=== PATIENT | female | born 1985 | race Two or more races ===

== ENCOUNTER 2016-09-20 19:15 | Emergency (ER) | payer BC ==
--- NOTE | 2016-09-20 19:22 | PDOC ---
History of Present Illness <Raoul Polo - Last Filed: 09/20/16 19:37> - History of Present Illness Initial Comments: 09/20/16 19:22 The patient is a 31 year old female with a past medical hx of ectopic , nephrolithiasis, cystic breast, migraines who presents to the ED complaining of left and right ear pain for a few days. The patient reports she went to an ENT yesterday and had her left ear cleaned out with a vacuum. She states she was prescribed nasal spray that she has not yet used. The patient notes she woke up today and both of her ears felt like they were swollen and she cannot hear out of her left ear. She reports she feels congested but denies any other symptoms at this time. The patient denies fever, chills, dizziness <Vi Beckford - Last Filed: 09/20/16 19:38> - General Chief Complaint: Ear Problem Stated Complaint: [place] EAR PAIN Time Seen by Provider: 09/20/16 19:18 Past History - Past Medical History Kidney Stones: Yes - Psycho/Social/Smoking Cessation Hx Anxiety: No Suicidal Ideation: No Smoking History: Never smoked Hx Alcohol Use: No Drug/Substance Use Hx: No <Raoul Polo - Last Filed: 09/20/16 19:37> <Vi Beckford - Last Filed: 09/20/16 19:38> - Past Medical History Allergies/Adverse Reactions: Allergies Allergy/AdvReac Type Severity Reaction Status Date / Time No Known Allergies Allergy Verified 09/20/16 19:16 Home Medications: Ambulatory Orders Ibuprofen [Motrin -] 400 mg PO ASDIR 01/22/16 Review of Systems - Review of Systems Able to Perform ROS?: Yes Comments:: 09/20/16 19:24 GENERAL/CONSTITUTIONAL: No: fever, chills HEAD, EYES, EARS, NOSE AND THROAT: +Bilateral ear pain, hearing loss left ear <Vi Beckford - Last Filed: 09/20/16 19:38> *Physical Exam - Vital Signs Last Vital Signs Temp Pulse Resp BP Pulse Ox 98.3 F 75 18 117/70 99 09/20/16 19:15 09/20/16 19:15 09/20/16 19:15 09/20/16 19:15 09/20/16 19:15 - Physical Exam General Appearance: Yes: Nourished, Appropriately Dressed. No: Apparent Distress HEENT: positive: Normal ENT Inspection, Nasal Congestion Neck: positive: Supple. negative: Tender Respiratory/Chest: positive: Lungs Clear, Normal Breath Sounds. negative: Chest Tender, Respiratory Distress Cardiovascular: positive: Regular Rhythm, Regular Rate Gastrointestinal/Abdominal: positive: Soft. negative: Tender Musculoskeletal: positive: Normal Inspection Extremity: positive: Normal Capillary Refill Integumentary: positive: Normal Color Neurologic: positive: Fully Oriented, Alert, Normal Mood/Affect, Normal Response , Motor Strength 5/5 <Raoul Polo - Last Filed: 09/20/16 19:37> - Vital Signs Last Vital Signs Temp Pulse Resp BP Pulse Ox 98.3 F 75 18 117/70 99 09/20/16 19:15 09/20/16 19:15 09/20/16 19:15 09/20/16 19:15 09/20/16 19:15 <Vi Beckford - Last Filed: 09/20/16 19:38> *DC/Admit/Observation/Transfer <Raoul Polo - Last Filed: 09/20/16 19:37> - Attestations Scribe Attestion: 09/20/16 19:22 Documentation prepared by Vi Beckford, acting as medical specialist for Raoul Polo MD/DO. <Vi Beckford - Last Filed: 09/20/16 19:38> Diagnosis at time of Disposition: Nasal congestion - Discharge Dispostion Disposition: HOME Condition at time of disposition: Stable - Patient Instructions Additional Instructions: PLENTY OF FLUIDS (WATER/GATORADE) USE SPRAY PRESCRIBED BY YOUR DOCTOR RETURN IF FEVER OR NEW SYMPTOMS
[2016-09-20 19:27] VITALS: BP 117/70; PULSE 75; TEMP 98.3; BMI 22.8
== END 2016-09-20 19:37 | disposition home or self-care (01) ==
LOC: FER 19:15
DX: R09.81 Nasal congestion (principal)
CPT/HCPCS: 99282-25

== ENCOUNTER 2016-12-24 21:28 | Emergency (ER) | payer BC ==
[2016-12-24 21:47] VITALS: BP 126/81; PULSE 90; TEMP 98.5; BMI 23.1
--- NOTE | 2016-12-24 22:21 | PDOC ---
History of Present Illness - General Chief Complaint: Oral Ulcers Stated Complaint: MOUTH PROBLEM Time Seen by Provider: 12/24/16 22:02 History Source: Patient Exam Limitations: No Limitations - History of Present Illness Initial Comments: 12/24/16 22:22 This is a 31-year-old female who comes in complaining of a sore in her mouth. 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 Patient denies any fevers or chills. Patient denies any trauma. PAST MEDICAL HISTORY: no significant history PAST SURGICAL HISTORY: no significant history FAMILY HISTORY: no pertinant history SOCIAL HISTORY: Pt lives with family and is employed. MEDICATIONS: reviewed ALLERGIES: As per nursing notes Review of Systems General: No fevers or chills, no weakness, no weight loss HEENT: No change in vision. No sore throat,. No ear pain, sore in mouth CardioVascular: No chest pain or shortness of breath Respiratory:No cough, or wheezing. Gastrointestinal: no nausea, vomitting, diarrhea or constipation, No rectal bleeding Genitourinary: No dysuria, hematuria, or frequency Musculoskeletal: No joint or muscle pain or swelling Neurologic: No headache, vertigo, dizziness or loss of consciousness Psychiatric: nor depression Skin: No rashes or easy bruising Endocrine: no increased thirst or abnormal weight change Allergic: no skin or latex allergy All other systems reviewed and normal GENERAL: The patient is awake, alert, and fully oriented, in no acute distress. HEAD: Normal with no signs of trauma. Mouth: There is a small aphthous ulcer on the inside of patient's lip. There is also a small mucoid cyst. EYES: Pupils equal, round and reactive to light, extraocular movements intact, sclera anicteric, conjunctiva clear. EXTREMITIES: Normal range of motion, no edema. NEUROLOGICAL: Normal speech, normal gait. PSYCH: Normal mood, normal affect. SKIN: Warm, Dry, normal turgor, no rashes or lesions noted. Assessment and plan: This is a 31-year-old female who comes in complaining of a sore in her mouth. On exam patient has a small canker sore. Patient was reassured that is not anything to be concerned about it will resolve on its own and patient was discharged. Past History - Past Medical History Allergies/Adverse Reactions: Allergies Allergy/AdvReac Type Severity Reaction Status Date / Time No Known Allergies Allergy Verified 09/20/16 19:16 Home Medications: Ambulatory Orders NK [No Known Home Medication] 12/24/16 Kidney Stones: Yes - Psycho/Social/Smoking Cessation Hx Anxiety: No Suicidal Ideation: No Smoking History: Never smoked Hx Alcohol Use: No Drug/Substance Use Hx: No *Physical Exam - Vital Signs Last Vital Signs Temp Pulse Resp BP Pulse Ox 98.5 F 90 16 126/81 98 12/24/16 21:34 12/24/16 21:34 12/24/16 21:34 12/24/16 21:34 12/24/16 21:34 *DC/Admit/Observation/Transfer Diagnosis at time of Disposition: Aphthous ulcer of mouth - Discharge Dispostion Disposition: HOME Condition at time of disposition: Stable Admit: No - Referrals Referrals: Mario Strauss [Primary Care Provider] - - Patient Instructions Printed Discharge Instructions: DI for Aphthous Ulcers (Canker Sores), Canker Sores (Alternative Therapy) Additional Instructions: Return to the emergency department immediately with ANY new, persistent or worsening symptoms. Continue any medications as previously prescribed by your physician. You should follow up with your primary doctor as soon as possible regarding today's emergency department visit. . Please make sure your doctor reviews the results of your emergency evaluation. Thank you for coming to the Emergency Department today for your care. It was a pleasure to see you today. Please note that your evaluation is INCOMPLETE until you follow-up with your doctor.
== END 2016-12-24 22:23 | disposition home or self-care (01) ==
LOC: FER 21:28
DX: K12.0 Recurrent oral aphthae (principal)
CPT/HCPCS: 99281-25

== ENCOUNTER 2019-07-27 11:11 | Emergency (ER) | payer BC, OTHER ==
[2019-07-27 11:19] VITALS: BMI 22.5
[2019-07-27 12:09] LABS: BASO % 0.6 % (0-2.0); EOS % 0.4 % (0-4.5); HEMATOCRIT 44.5 % (32.4-45.2); HEMOGLOBIN 14.9 GM/dL (10.7-15.3); LYMPH % 18.2 % (8-40); MCH 31.1 pg (25.7-33.7); MCHC 33.4 g/dl (32.0-36.0); MEAN CELL VOLUME 93.1 fl (80-96); MEAN PLT VOLUME 8.1 fl (7.5-11.1); MONO % 6.8 % (3.8-10.2); PLATELET COUNT 207 K/MM3 (134-434); RBC 4.78 M/mm3 (3.60-5.2); RDW 12.4 % (11.6-15.6); WHITE BLOOD COUNT 6.2 K/mm3 (4.0-10.0)
--- NOTE | 2019-07-27 12:13 | PDOC ---
History of Present Illness - General Chief Complaint: Pain, Acute Stated Complaint: R/I KIDNEY STONE History Source: Patient Exam Limitations: No Limitations - History of Present Illness Initial Comments: 07/27/19 12:10 PCP: Dr. Kory Knox Renal: Dr. Taylor Mccarthy HPI: 34yo F with history of nephrolithiasis presenting with R flank pain. Nausea while heading to the ED, resolved while laying down. No vomiting. Denies any fevers or chills. History of multiple presentations for stones, none obstructing, multiple renal calculi, first at age 18, father also with stones. Patient noticed dark urine today, denies any dysuria, pain, burning frequency, abdominal pain. Endorses urinary urgency which is consistent with her prior stone symptoms. One prior complicated stone, admitted at [facility] with +BCx for urosepsis. Normal BMs, no constipation / diarrhea. Denies CP, SOB, lightheadedness, cough. NKDA Meds: Denies PMH: Renal colic, stones PSH: B/l tubal removals for ectopic pregnancies SHx: Smoking and ETOH on the weekends, denies illicits Past History - Travel Traveled outside of the country in the last 30 days: No Close contact w/someone who was outside of country & ill: No - Past Medical History Allergies/Adverse Reactions: Allergies Allergy/AdvReac Type Severity Reaction Status Date / Time No Known Allergies Allergy Verified 07/27/19 11:19 Home Medications: Ambulatory Orders Ibuprofen [Motrin -] 800 mg PO PRN PRN 02/12/18 Ondansetron [Zofran Odt -] 4 mg SL TID PRN #10 od.tablet 02/13/18 Tamsulosin HCl [Flomax] 0.4 mg PO DAILY #10 capsule 02/13/18 Tamsulosin HCl [Flomax] 0.4 mg PO DAILY #30 cap.er.24h 07/27/19 COPD: No Kidney Stones: Yes - Reproductive History Ectopic : Yes (X2) - Psycho Social/Smoking Cessation Hx Smoking History: Never smoked Have you smoked in the past 12 months: No Hx Alcohol Use: No Drug/Substance Use Hx: No Substance Use Type: None Review of Systems - Review of Systems Able to Perform ROS?: Yes Is the patient limited Gabonese proficient: Yes Constitutional: No: Chills, Fever, Weakness, Weight Stable HEENTM: No: Blurred Vision, Recent change in vision, Nose Congestion, Throat Swelling, Mouth Pain Respiratory: No: Cough, Shortness of Breath, Wheezing Cardiac (ROS): No: Chest Pain, Irregular Heart Rate, Chest Tightness ABD/GI: Yes: Nausea (shortly before arrival, resolved). No: Constipated, Diarrhea, Poor Appetite, Poor Fluid Intake, Rectal Bleeding, Vomiting : Yes: Flank Pain, Hematuria, Urgency. No: Burning, Dysuria, Discharge, Frequency, Incontinence, Pain Musculoskeletal: No: Back Pain, Muscle Pain, Muscle Weakness Integumentary: No: Bruising, Pruritus, Rash Neurological: No: Headache, Numbness, Tingling, Weakness Psychiatric: No: Stressors, Emotional Problems Endocrine: No: Increased Thirst, Increased Urine, Change in Weight Hematologic/Lymphatic: No: Anemia, Blood Clots, Easy Bleeding All Other Systems: Reviewed and Negative *Physical Exam - Vital Signs Last Vital Signs Temp Pulse Resp BP Pulse Ox 98 F 86 18 116/65 100 07/27/19 11:17 07/27/19 11:17 07/27/19 11:17 07/27/19 11:17 07/27/19 11:17 - Physical Exam 07/27/19 13:34 Vitals reviewed, AFVSS GEN: Well appearing, NAD, slightly uncomfortable, laying on left side holding right flank, A&Ox3 HEENT: NC/AT, EOMI, PERRLA. No facial asymmetry. Moist mucous membranes. Normal voice. Supple neck w/ FROM. CV: S1/S2, RRR, no m/r/g LUNG: CTAB, no wheezes, crackles, rales, rhonchi. GI: soft, ndnt, +BS, no guarding, no rebound. No masses. Neg CVAT b/l. EXTREMITIES: 2+ distal pulses. No LE edema. No obvious deformities of all extremities. SKIN: Warm, dry, normal turgor PSYCH: Normal mood and affect NEURO: Moving all extremities well ED Treatment Course - LABORATORY CBC & Chemistry Diagram: 07/27/19 11:52 07/27/19 11:52 Medical Decision Making - Medical Decision Making 07/27/19 13:33 34yo F with history of nephrolithiasis presenting with R flank pain c/w ureterolithiasis, UTI vs pyleo less likely but also on the DDX, intra-abdominal pathology less likely given exam, plan for basic labs and urine studies. - CBC, CMP, UA - Toradol 15mg IV - IVF 1L - Hepical CT 07/27/19 13:44 - Patient with symptomatic relief s/p toradol - Agrees with plan for spiral CT and likely discharge 07/27/19 16:02 - Pain returning, additional dose of Toradol 15 given - CT with 5mm proximal obstructing stone - Rx for Flomax - F/u with Renal vs PCP within 1 week - Motrin / Tylenol as needed for pain - Return precautions discussed Dispo: home Discharge - Discharge Information Problems reviewed: Yes Clinical Impression/Diagnosis: Renal colic on right side Condition: Improved Disposition: HOME - Admission No - Additional Discharge Information Prescriptions: Tamsulosin HCl [Flomax] 0.4 mg PO DAILY #30 cap.er.24h - Follow up/Referral Referrals: Kory Knox [Primary Care Provider] - - Patient Discharge Instructions Patient Printed Discharge Instructions: Kidney Stones -- Adult Additional Instructions: You were seen and evaluated for R sided flank pain and were found to be passing a kidney stone. Please continue to take over the counter pain medication as needed for your pain. Take 650mg Tylenol, then after 3 hours take 600mg of Motrin then after 3 hours start over with Tylenol. This provides the best pain coverage. Also continue to drink lots of water as this can help pass the stone and prevent further stones. A prescription for Flomax has been sent to your pharmacy, please pick this up and use it as directed until you are able to follow up with your PCP or Renal provider or your symptoms resolve. Follow up with your kidney doctor or PCP in the next 2-3 days if your pain does not resolve. Return to the ED if you develop any new or concerning symptoms. These may include but are not limited to: fevers / chills, nausea with vomiting that prevent you from drinking water or taking medication, or pain with urination. Thank you for coming in. I hope you feel well soon. - Post Discharge Activity
[2019-07-27] MEDS ORDERED: SODIUM CHLORIDE 0.9% 500 ML INFUS.BAG IV ONE (12:23)
[2019-07-27] MEDS ORDERED: KETOROLAC TROMETHAMINE 15 MG/ML VIAL IVPUSH ONE ×2 (12:23→15:59)
[2019-07-27] MEDS ORDERED: KETOROLAC TROMETHAMINE 15 MG/ML VIAL ONE ×2 (12:33→16:13)
[2019-07-27 12:34] LABS: ALBUMIN 4.5 g/dl (3.4-5.0); BILIRUBIN,TOTAL 0.9 mg/dL (0.2-1); BLOOD UREA NITROGEN 10.4 mg/dL (7-18); CALCIUM 9.5 mg/dL (8.5-10.1); CREATININE 0.8 mg/dL (0.55-1.3); POTASSIUM 4.2 mmol/L (3.5-5.1); TOT PROT 7.8 g/dl (6.4-8.2)
[2019-07-27 12:51] LABS: EPI CELLS 6.7 /HPF (0-5/HPF); HYALINE CASTS 3 /lpf (0-8); URINE APPEARANCE TURBID; URINE BACTERIA 58.3 /hpf (NEGATIVE); URINE BILIRUBIN NEGATIVE (NEGATIVE); URINE COLOR ORANGE; URINE GLUCOSE (UA) NEGATIVE (NEGATIVE); URINE KETONE NEGATIVE (NEGATIVE); URINE LEUK ESTERASE TRACE (NEGATIVE); URINE NITRITE NEGATIVE (NEGATIVE); URINE PROTEIN 2+ (NEGATIVE); URINE RBC 1851 /hpf (0-4); URINE WBC 4 /hpf (0-5)
--- NOTE | 2019-07-27 14:21 | PDOC ---
Documentation entered by Gabriel Szymanski SCRIBE, acting as scribe for Yoko Carpio MD. Yoko Carpio MD: This documentation has been prepared by the Nessa irving Xhesika, SCRIBE, under my direction and personally reviewed by me in its entirety. I confirm that the documentation accurately reflects all work, treatment, procedures, and medical decision making performed by me. Attending Attestation - Resident Resident Name: Miguel Tellez - HPI HPI: 07/27/19 13:22 The patient is a 34 year old female with a significant PMH of kidney stones who presents to the emergency department for R flank pain since yesterday. Patient reports associated nausea and blood tinged urine today. Patient states her symptoms are similar to her previous kidney stones. The patient denies chest pain, shortness of breath, headache and dizziness. Denies fever, chills, cough, vomiting, diarrhea. Denies dysuria, frequency, urgency. Allergies: NKDA Surgical hx: bilateral fallopian tube removal - Physicial Exam PE: 07/27/19 13:22 GENERAL: The patient is awake, alert, and fully oriented, Nontoxic - in no acute distress. HEAD: Normocephalic, atraumatic. EYES: extraocular movements intact, sclera anicteric, conjunctiva clear. ENT: Normal voice, moist mucous membranes. NECK: Normal range of motion, supple without lymphadenopathy, JVD, or masses. LUNGS: Breath sounds equal, clear to auscultation bilaterally. No wheezes, no crackles, no rales. HEART: Regular rate and rhythm, normal S1 and S2 without murmur, rub or gallop. BACK: +mild R CVA tenderness. ABDOMEN: Soft, nontender, normoactive bowel sounds. No guarding, no rebound. No masses. EXTREMITIES:Normal range of motion, no edema. No clubbing or cyanosis. No cords , erythema, or tenderness. NEUROLOGICAL: Fully Oriented, Alert, Normal Mood/Affect, Motor Strength 5/5. No facial asymmetry, Normal speech SKIN: Warm, Dry, normal turgor, no rashes or lesions noted. - Medical Decision Making 07/27/19 14:16 34 y/o female with h/o kidney stnes since the age of 19. Says she developed rt flank ain again last night tried drinkig mor efluid pain did not improve came into ED for evaluation. Pt currently feeling better with fluids an toradol. Pt has already made f/u appointment with her urologist for Monday07-29-19. Will obtain spiral CT to confirm presence and size of kidney stone, will plan to dc home on pain meds and out pt f/u with urologist in 48hrs. Pt agrees with this dc plan and is in stable condition at time of this note.
[2019-07-27 16:34] VITALS: BP 112/67; PULSE 75; TEMP 98.1
== END 2019-07-27 16:30 | disposition home or self-care (01) ==
LOC: JER 11:11
PROC: 3E0333Z Introduction of Anti-inflammatory into Peripheral Vein, Percutaneous Approach (ICD-10-PCS; principal; 2019-07-27)
DX: N20.0 Calculus of kidney (principal); Z87.442 Personal history of urinary calculi; Z98.51 Tubal ligation status
CPT/HCPCS: 36415; 74176-TC; 80053; 81003; 84703; 85025; 87086; 99282-25